=== PATIENT | male | born 1950 | race Caucasian/White ===

== ENCOUNTER 2022-02-01 08:32 | Outpatient (CLI) | payer MEDICARE, OTHER, SELFPAY | END 2022-02-01 08:33 | disposition home or self-care (01) | PROVIDERS: PCP Family Medicine; Visit Provider Family Medicine | DX: M51.36 Other intervertebral disc degeneration, lumbar region (principal); M54.16 Radiculopathy, lumbar region | CPT/HCPCS: 62323; J0702; Q9966 ==

== ENCOUNTER 2022-05-24 07:50 | Outpatient (CLI) | payer MEDICARE, OTHER, SELFPAY | END 2022-05-24 07:51 | disposition home or self-care (01) | LOC: INJ CL 07:51 | PROVIDERS: PCP Family Medicine; Visit Provider Family Medicine | DX: M54.16 Radiculopathy, lumbar region (principal); M51.36 Other intervertebral disc degeneration, lumbar region | CPT/HCPCS: 62323; J0702; Q9966 ==